=== PATIENT | male | born 2000 | race Two or more races ===

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

== ENCOUNTER 2019-02-06 22:45 | Emergency (ER) | payer SELFPAY ==
[~2019-02-06] VITALS: Ht 180.3 cm; Wt 100.0 kg
[2019-02-07] MEDS ORDERED: LIDOCAINE VISCOUS 2% SOLN 15ML UDC SS ONE (03:45)
[2019-02-07] MEDS ORDERED: ACETAMINOPHEN TAB 650MG DOSE (2X325MG) PO ONE (03:45)
[2019-02-07] MEDS ORDERED: AMOXICILLIN 500 MG CAP PO ONE (04:15)
[2019-02-07] MEDS ORDERED: AMOX500C PO (04:15)
[2019-02-07 04:37] VITALS: BP 118/59
== END 2019-02-07 04:39 | disposition home or self-care (01) ==
LOC: M ED 22:45
DX: J02.0 Streptococcal pharyngitis (principal); Z88.8 Allergy status to other drugs, medicaments and biological substances; F17.210 Nicotine dependence, cigarettes, uncomplicated

== ENCOUNTER 2019-05-03 12:20 | Emergency (ER) | payer MEDICAID, SELFPAY ==
[~2019-05-03] VITALS: Ht 182.9 cm; Wt 101.0 kg
[~2019-05-03 12:20] MED LIST changes: +AMOX500C PO
[2019-05-03] MEDS ORDERED: IPRATROPIUM 0.5MG/ALBUTEROL 2.5MG INH SOL UD 3ML (DUONEB)(J7620) NEB ONE (13:45)
[2019-05-03 14:18] LABS: BASO % 0.4 % (0.0-1.0); EOS # 0.1 10^3/uL (0.0-0.5); EOS % 1.1 % (0.0-3.0); HEMATOCRIT 48.7 % (42.0-52.0); HEMOGLOBIN 16.5 g/dl (13.5-17.5); LYMPH # 2.6 10^3/uL (1.5-5.0); LYMPH % 32.2 % (24.0-44.0); MEAN CORPUSCULAR HEMOGLOBIN 30.3 pg (27.0-33.0); MEAN CORPUSCULAR HGB CONC 33.9 g/dl (32.0-36.5); MEAN CORPUSCULAR VOLUME 89.4 fl (80.0-96.0); MONO # 0.6 10^3/uL (0.0-0.8); MONO % 7.9 % (0.0-5.0); NEUTROPHILS # 4.7 10^3/uL (1.5-8.5); PLATELET COUNT, AUTOMATED 239 10^3/uL (150-450); RED BLOOD COUNT 5.45 10^6/uL (4.30-6.10); WHITE BLOOD COUNT 8.1 10^3/uL (4.0-10.0)
--- NOTE | 2019-05-03 14:22 | REP ---
CT of the brain without IV contrast: Comparison is 10/10/2018. There is no hemorrhage. There is no edema, mass effect or midline shift. Ventricles are normal size. The cortical stripe is unremarkable. The visualized paranasal sinuses and mastoid air was air cells are clear. There is no change from the prior study. Impression: There is no hemorrhage, acute infarct or mass. Negative CT study of the brain. No interval change. Electronically Signed by Srinivasan Lantigua MD 05/03/2019 02:14 P
--- NOTE | 2019-05-03 14:30 | REP ---
PA and lateral chest: Comparison is 10/10/2018. The lung warner are clear. The cardiac size is normal. The dionne, mediastinum, and skeletal structures are unremarkable. Impression: Negative PA and lateral chest. There is no interval change. Electronically Signed by Srinivasan Lantigua MD 05/03/2019 02:22 P
[2019-05-03 14:52] LABS: ALBUMIN 4.2 GM/DL (3.2-5.2); ALT/SGPT 54 U/L (12-78); BLOOD UREA NITROGEN 12 MG/DL (7-18); CALCIUM LEVEL 9.4 MG/DL (8.5-10.1); CARBON DIOXIDE LEVEL 29 MEQ/L (21-32); CHLORIDE LEVEL 105 MEQ/L (98-107); CREATININE FOR GFR 0.85 MG/DL (0.70-1.30); GLUCOSE, FASTING 73 MG/DL (70-100); POTASSIUM SERUM 4.3 MEQ/L (3.5-5.1); SODIUM LEVEL 140 MEQ/L (136-145); TOTAL PROTEIN 7.4 GM/DL (6.4-8.2)
[2019-05-03] MEDS ORDERED: PROAAER10 INH (15:03)
[2019-05-03 15:07] VITALS: BP 140/65
== END 2019-05-03 15:10 | disposition home or self-care (01) ==
LOC: M ED 12:20
DX: J45.998 Other asthma (principal); F90.9 Attention-deficit hyperactivity disorder, unspecified type; Z88.8 Allergy status to other drugs, medicaments and biological substances; F17.210 Nicotine dependence, cigarettes, uncomplicated

== ENCOUNTER 2019-06-14 21:10 | Emergency (ER) | payer MEDICAID, OTHER ==
[~2019-06-14] VITALS: Ht 182.9 cm; Wt 102.3 kg
[~2019-06-14 21:10] MED LIST changes: +PROAAER10 INH
[2019-06-14] MEDS: NAPROXEN 250 MG TAB PO ONE (22:06)
[2019-06-14] MEDS ORDERED: NAPR-837 PO (23:30)
[2019-06-14 23:36] VITALS: BP 131/70
[2019-06-15 00:07] LABS: CHLAMYDIA DNA AMPLIFICATION NEGATIVE (NEGATIVE); GC DNA AMPLIFICATION NEGATIVE (NEGATIVE)
--- NOTE | 2019-06-15 10:38 | REP ---
Clinical: Left testicular pain. Technique: Real time hough scale and color Doppler evaluation using linear and curved array transducers. Findings: Bilateral testicles and epididymi are normal in contour, size, echogenicity, and vascularity. No torsion, infectious/inflammatory process, or mass lesion. No hydrocele. No varicocele. Right testicle measures 5.0 x 2.9 x 3.3 cm. Left testicle measures 5.1 x 2.7 x 3.3 cm. Impression: Normal scrotal ultrasound. Electronically Signed by Samm Elena MD 06/15/2019 10:30 A
== END 2019-06-14 23:39 | disposition home or self-care (01) ==
LOC: M ED 21:10
DX: N50.811 Right testicular pain (principal); J45.909 Unspecified asthma, uncomplicated; F90.9 Attention-deficit hyperactivity disorder, unspecified type; Z88.8 Allergy status to other drugs, medicaments and biological substances

== ENCOUNTER → 2019-08-03 | Outpatient (CLI) | payer OTHER ==
[2019-08-03 18:08] LABS: BASO % 0.3 % (0.0-1.0); EOS # 0.1 10^3/uL (0.0-0.5); HEMOGLOBIN 16.2 g/dl (13.5-17.5); LYMPH # 2.6 10^3/uL (1.5-5.0); LYMPH % 33.5 % (24.0-44.0); MEAN CORPUSCULAR HEMOGLOBIN 30.4 pg (27.0-33.0); MEAN CORPUSCULAR HGB CONC 33.8 g/dl (32.0-36.5); MEAN CORPUSCULAR VOLUME 90.1 fl (80.0-96.0); MONO # 0.7 10^3/uL (0.0-0.8); MONO % 8.6 % (0.0-5.0); NEUTROPHILS # 4.4 10^3/uL (1.5-8.5); NEUTROPHILS % 56.3 % (36.0-66.0); PLATELET COUNT, AUTOMATED 244 10^3/uL (150-450); RED BLOOD COUNT 5.33 10^6/uL (4.30-6.10); WHITE BLOOD COUNT 7.8 10^3/uL (4.0-10.0)
[2019-08-03 18:14] LABS: ALBUMIN 4.5 GM/DL (3.2-5.2); ALT/SGPT 82 U/L (12-78); BILIRUBIN,DIRECT 0.2 MG/DL (0.0-0.2); BILIRUBIN,TOTAL 1.2 MG/DL (0.2-1.0); BLOOD UREA NITROGEN 10 MG/DL (7-18); CALCIUM LEVEL 9.1 MG/DL (8.5-10.1); CARBON DIOXIDE LEVEL 31 MEQ/L (21-32); CHLORIDE LEVEL 105 MEQ/L (98-107); CHOLESTEROL LEVEL 141 MG/DL (<200); CHOLESTEROL RISK RATIO 4.862 (<5); CREATININE FOR GFR 0.95 MG/DL (0.70-1.30); GLUCOSE, FASTING 79 MG/DL (70-100); HDL CHOLESTEROL 29 MG/DL (>40); LDL CHOLESTEROL 83 MG/DL (<100); NON-HDL-C 112 MG/DL; POTASSIUM SERUM 4.1 MEQ/L (3.5-5.1); SODIUM LEVEL 142 MEQ/L (136-145); TOTAL 25(OH) VITAMIN D 18.3 NG/ML (30.0-100.0); TRIGLYCERIDES LEVEL 143 MG/DL (<150); VITAMIN B12 LEVEL 788 PG/ML (247-911)
== END ==
LOC: M PLALAB 13:07
PROVIDERS: ATTEND Nurse Practitioner Psychiatric/Mental Health
DX: F33.0 Major depressive disorder, recurrent, mild (principal)

== ENCOUNTER 2019-08-26 22:12 | Emergency (ER) | payer OTHER ==
[~2019-08-26] VITALS: Ht 180.3 cm; Wt 110.8 kg
[2019-08-26] MEDS ORDERED: AMPH1CAP14 (22:21)
[2019-08-26] MEDS ORDERED: VENL37TA (22:21)
[2019-08-26] MEDS ORDERED: NICO21DI37 (22:21)
[2019-08-26] MEDS ORDERED: ARIP1TAB (22:21)
[2019-08-26 23:08] LABS: INFLUENZA A AMPLIFICATION NEGATIVE (NEGATIVE); INFLUENZA B AMPLIFICATION NEGATIVE (NEGATIVE)
[2019-08-26] MEDS ORDERED: CEFP200T PO (23:57)
[2019-08-27 00:06] VITALS: BP 118/63
== END 2019-08-27 00:07 | disposition home or self-care (01) ==
LOC: M ED 22:12
DX: J02.0 Streptococcal pharyngitis (principal); Z20.89 Contact with and (suspected) exposure to other communicable diseases; F17.200 Nicotine dependence, unspecified, uncomplicated; Z79.899 Other long term (current) drug therapy; Z88.8 Allergy status to other drugs, medicaments and biological substances

== ENCOUNTER 2020-02-27 15:14 | Emergency (ER) | payer OTHER ==
[~2020-02-27 15:14] MED LIST changes: +AMPH1CAP14; +ARIP1TAB; +CEFP200T PO; +CYCL-707 PO; -CYCL10TA PO; +NICO21DI37; +VENL37TA
[2020-02-27 16:35] LABS: HEMATOCRIT 48.9 % (42.0-52.0); HEMOGLOBIN 16.9 g/dl (13.5-17.5); MEAN CORPUSCULAR HEMOGLOBIN 30.7 pg (27.0-33.0); MEAN CORPUSCULAR HGB CONC 34.6 g/dl (32.0-36.5); MEAN CORPUSCULAR VOLUME 88.7 fl (80.0-96.0); PLATELET COUNT, AUTOMATED 269 10^3/uL (150-450); RED BLOOD COUNT 5.51 10^6/uL (4.30-6.10); WHITE BLOOD COUNT 7.8 10^3/uL (4.0-10.0)
[2020-02-27 17:08] LABS: ACETAMINOPHEN LEVEL < 2.0 UG/ML (10.0-30.0); ALBUMIN 4.5 GM/DL (3.2-5.2); ALT/SGPT 126 U/L (12-78); BILIRUBIN,DIRECT 0.4 MG/DL (0.0-0.2); BILIRUBIN,TOTAL 1.5 MG/DL (0.2-1.0); BLOOD UREA NITROGEN 8 MG/DL (7-18); CALCIUM LEVEL 9.6 MG/DL (8.5-10.1); CARBON DIOXIDE LEVEL 26 MEQ/L (21-32); CHLORIDE LEVEL 105 MEQ/L (98-107); CREATININE FOR GFR 0.98 MG/DL (0.70-1.30); ETHYL ALCOHOL (ETHANOL) 0.034 % (0.000-0.010); GLUCOSE, FASTING 77 MG/DL (70-100); SALICYLATE LEVEL < 1.7 MG/DL (5.0-30.0); SODIUM LEVEL 139 MEQ/L (136-145); TOTAL PROTEIN 7.5 GM/DL (6.4-8.2)
[2020-02-27 17:35] LABS: AMPHETAMINES LEVEL URINE NEGATIVE (NEGATIVE); BARBITURATES URINE NEGATIVE (NEGATIVE); BENZODIAZEPINES URINE NEGATIVE (NEGATIVE); CANNABINOIDS URINE NEGATIVE (NEGATIVE); COCAINE METABOLITE URINE NEGATIVE (NEGATIVE); METHADONE URINE NEGATIVE (NEGATIVE); OPIATES URINE NEGATIVE (NEGATIVE); PHENCYCLIDINE URINE NEGATIVE (NEGATIVE)
[2020-02-27] MEDS ORDERED: AMPH1CAP5 PO (17:59)
[2020-02-27] MEDS ORDERED: PROAAER10 INH (17:59)
[2020-02-27] MEDS ORDERED: VENL37.598 PO (17:59)
[2020-02-27] MEDS ORDERED: ACETAMINOPHEN TAB 650MG DOSE (2X325MG) PO ONE (19:15)
[2020-02-27 19:39] VITALS: BP 148/68
== END 2020-02-27 19:41 | disposition home or self-care (01) ==
LOC: M ED 15:14
DX: Z60.9 Problem related to social environment, unspecified (principal); F33.9 Major depressive disorder, recurrent, unspecified; F41.9 Anxiety disorder, unspecified; Z79.899 Other long term (current) drug therapy; Z88.8 Allergy status to other drugs, medicaments and biological substances; F17.210 Nicotine dependence, cigarettes, uncomplicated
CPT/HCPCS: 36415; 80048; 80076; 80307; 84443; 85027; 99284; G0480

== ENCOUNTER 2020-08-25 18:53 | Emergency (ER) | payer OTHER ==
[~2020-08-25] VITALS: Ht 180.3 cm; Wt 100.5 kg
[~2020-08-25 18:53] MED LIST changes: +AMPH1CAP5 PO; +BUPR150T12; -BUPR150T3; +VENL37.598 PO
[2020-08-25 18:54] VITALS: BP 139/77
== END 2020-08-25 20:22 | disposition home or self-care (01) ==
LOC: M ED 18:53
DX: Z11.52 Encounter for screening for COVID-19 (principal); J45.909 Unspecified asthma, uncomplicated; F33.9 Major depressive disorder, recurrent, unspecified; F90.9 Attention-deficit hyperactivity disorder, unspecified type; Z88.8 Allergy status to other drugs, medicaments and biological substances; F17.210 Nicotine dependence, cigarettes, uncomplicated
CPT/HCPCS: 99283; U0003

== ENCOUNTER 2022-10-13 17:12 | Emergency (ER) | payer OTHER ==
[~2022-10-13] VITALS: Ht 180.3 cm; Wt 85.4 kg
[~2022-10-13 17:12] MED LIST changes: +ARIP10TA32; -ARIP1TAB
[2022-10-13 17:13] VITALS: BP 124/75
[2022-10-13] MEDS ORDERED: PENICILLIN V POTASSIUM 500 MG TAB PO ONE (18:40)
[2022-10-13] MEDS ORDERED: KETOROLAC 30 MG/ML 1ML VIAL IM ONE (18:40)
[2022-10-13] MEDS ORDERED: PENI500T PO (18:59)
[2022-10-13] MEDS ORDERED: IBUP-1022 PO (19:00)
[2022-10-13] MEDS ORDERED: PERI12LIQ PO (19:02)
== END 2022-10-13 19:19 | disposition home or self-care (01) ==
LOC: M ED 17:12
DX: K05.00 Acute gingivitis, plaque induced (principal); K02.9 Dental caries, unspecified; F17.210 Nicotine dependence, cigarettes, uncomplicated
CPT/HCPCS: 93005; 96372; 99283; J1885

== ENCOUNTER 2024-12-26 10:02 | Emergency (ER) | payer OTHER, SELFPAY ==
[~2024-12-26] VITALS: Ht 172.7 cm; Wt 66.0 kg
[~2024-12-26 10:02] MED LIST changes: -ARIP10TA32; +ARIP10TA63; +IBUP-1022 PO; +PERI12LIQ PO
[2024-12-26 10:08] VITALS: TEMP 98.5
[2024-12-26 10:51] LABS: PLATELET COUNT, AUTOMATED 255 10^3/uL (150-450)
[2024-12-26 11:11] LABS: PHENCYCLIDINE URINE NEGATIVE (NEGATIVE)
[2024-12-26 11:12] LABS: BARBITURATES URINE NEGATIVE (NEGATIVE); BENZODIAZEPINES URINE NEGATIVE (NEGATIVE); CANNABINOIDS URINE NEGATIVE (NEGATIVE); COCAINE METABOLITE URINE NEGATIVE (NEGATIVE); METHADONE URINE NEGATIVE (NEGATIVE); OPIATES URINE NEGATIVE (NEGATIVE)
[2024-12-26 11:14] LABS: AMPHETAMINES LEVEL URINE POSITIVE (NEGATIVE); ETHYL ALCOHOL (ETHANOL) < 0.003 % (0.000-0.010)
[2024-12-26 11:16] LABS: ALT/SGPT 51 U/L (7.0-40); AST/SGOT 45 U/L (<34); CALCIUM LEVEL 9.8 MG/DL (8.5-10.1); CARBON DIOXIDE LEVEL 26 MMOL/L (20-31); CHLORIDE LEVEL 108 MMOL/L (98-107); CREATININE FOR GFR 1.03 MG/DL (0.70-1.30); GLOMERULAR FILTRATION RATE > 90.0 (>60); POTASSIUM SERUM 3.7 MMOL/L (3.5-5.1); SALICYLATE LEVEL < 3.0 MG/DL (<30); SODIUM LEVEL 148 MMOL/L (136-145)
[2024-12-26 11:31] VITALS: BP 132/76; O2SAT 100
[2024-12-26] MEDS ORDERED: OVERDOSE RESCUE KIT XX SCH (13:30)
== END 2024-12-26 14:10 | disposition home or self-care (01) ==
LOC: M ED 10:02
DX: F19.10 Other psychoactive substance abuse, uncomplicated (principal); Z88.8 Allergy status to other drugs, medicaments and biological substances; Z79.1 Long term (current) use of non-steroidal anti-inflammatories (NSAID); Z79.2 Long term (current) use of antibiotics; Z79.899 Other long term (current) drug therapy